=== PATIENT | male | born 1965 | race Caucasian/White ===

== ENCOUNTER 2020-12-12 13:05 | Observation (INO) | payer OTHER, SELFPAY ==
[2020-12-12] VITALS (9 sets, daily range): BP systolic 95–138; BP diastolic 70–111; PULSE 58–79; RESP 10–20; TEMP 36.1–36.7; O2SAT 94–100
--- NOTE | ~2020-12-12 | NM_ITS ---
EXAMINATION: NM basilio stress w perfusion EXAM DATE: 12/13/2020 12:09 INDICATION: CP, SOB, syncope. Ischemic chest pain. TECHNIQUE: Rest images were obtained following intravenous administration of 10.0 mCi Tc99m tetrofosm in (Myoview). The patient was infused intravenously with Lexiscan (regadenoson). Then, 30.8 mCi Tc99m tetrofosmin (Myoview) was administered intravenously, and stress images were obtained. Data was nolan nstructed into short axis and horizontal and vertical long axis SPECT images. Gated SPECT images were also obtained. There is no prior study for comparison. FINDINGS: There is moderate-sized apical septal and apical inferior wall region of decreased perfusio n on the rest which normalizes on the stress examination. This is most likely artifact. There is no d efinite reversible or fixed perfusion abnormality to suggest ischemia or infarction. There is normal left ventricular wall motion. End diastolic volume: 117 mL. End-systolic volume: 63 mL. Left ventricular ejection fraction: 46%. IMPRESSION: 1. Normal myocardial perfusion at rest and during stress. 2. Left ventricular ejection fraction measuring 46%. Reviewed, dictated and finalized at location A. WORKER
--- NOTE | ~2020-12-12 | XR_ITS ---
EXAMINATION: XR chest 1V DATE: 12/12/2020 13:52 INDICATION: Syncope TECHNIQUE: frontal view of the chest was obtained. COMPARISON: None FINDINGS: The lungs are clear with no focal airspace opacities, pulmonary edema, pleural effusion or pneumothor ax. The cardiomediastinal silhouette is normal. Visualized bones and soft tissues are unremarkable. IMPRESSION: 1. No acute cardiopulmonary disease. Reviewed, dictated and finalized at location B. INAL MANAGER
--- NOTE | ~2020-12-12 | CT_ITS ---
EXAMINATION: CT brain wo con, CT cervical spine wo con EXAM DATE: 12/12/2020 13:46 INDICATION: syncope. Fall, frontal head injury. TECHNIQUE: Spiral CT of the head was performed without contrast. Axial, coronal and sagittal images were reviewed. Spiral CT of the cervical spine was performed without contrast. Axial images were rev iewed. Coronal and sagittal reformatted images were also reviewed. The dose-length product (DLP) fo r this examination was 605.33 (accession [id number]), 436.84 (accession [id number]) mGy-cm. The exposure was tailored according to patient size, and iterative reconstruction (ASIR) was used as additional dose reduction technique. There is no prior study for comparison. FINDINGS: HEAD CT: There is no acute intraparenchymal hemorrhage. No evidence of intraparenchymal brain mass l esion. No evidence of acute infarction. There is no mass effect or midline shift. There is no obstru ctive hydrocephalus suspected. There are no extra-axial collections. There are no acute calvarial f ractures. The orbits are unremarkable. Soft tissue is unremarkable. The visualized sinuses and mas toid air cells are well aerated. CERVICAL CT: There is soft tissue density in the right posterolateral aspect pharynx just above the e piglottis, possible soft tissue mass. Vallecula has material inside most likely debris. No cervical l ymphadenopathy. There is no evidence of acute cervical fracture. The odontoid process is intact. Pr e-dens space is normal. Prevertebral soft tissue is normal. There are no soft tissue abnormalities identified. There is no disc space widening or traumatic vertebral body subluxation suspected. Mode rate disc disease C3-4 and C6-7. Moderate right neural foraminal stenosis at C6-7, most narrowed cerv ical level. Moderate left-sided upper cervical facet arthropathy. A detailed level by level evaluati on of spondylosis can be added as addendum if requested. IMPRESSION: 1. Possible soft tissue mass such as squamous cell cancer in right posterolateral aspect of the phar ynx. Consider nonemergent ENT consult for direct visualization. 2. No acute intracranial findings or cervical fracture. Reviewed, dictated and finalized at location A. PATIONAL THERAPY TECHNICIAN IMPRESSION: 1. Possible soft tissue mass such as squamous cell cancer in right posterolate ral aspect of the pharynx. Consider nonemergent ENT consult for direct visualiz ation. 2. No acute intracranial findings or cervical fracture.
--- NOTE | 2020-12-12 13:20 | ECG_ITS ---
Measurements Intervals Farber Rate: 78 P: 3 MT: 174 QRS: 48 QRSD: 98 T: 36 QT: 369 QTc: 422 Interpretive Statements SINUS RHYTHM BASELINE ARTIFACT- I, III, AVL, AVF NORMAL ECG Electronically Signed On 12-12-2020 13:33:26 BLOOD DONOR UNIT ASSISTANT by Deep Bennett D.O.
--- NOTE | 2020-12-12 13:54 | ED.GENADULT ---
HPI - General Adult General Chief complaint: Syncope Stated complaint: syncope, then chest heaviness and SOB Time Seen by Provider: 12/12/20 13:42 Source: RN notes reviewed History of Present Illness HPI narrative: Patient presents to emergency department from home via EMS for syncopal episode. Patient states he was walking when the next thing he remembers he was on the ground. He states that he had no dizziness chest pain or shortness of breath prior to the episode states that following the episode he did have some chest pain and shortness of breath with the chest pain now resolved and shortness of breath improving he notes that this time he does have some neck pain but denies any other symptoms denies any fevers or chills vision changes nausea vomiting diarrhea or any other symptoms patient denies any previous cardiac history he does note that he has had some intermittent episodes of chest pain shortness of breath over the past several months Related Data Home Medications Medication Instructions Recorded Confirmed No Home Medications 12/12/20 12/12/20 Allergies Allergy/AdvReac Type Severity Reaction Status Date / Time No Known Allergies Allergy Verified 12/12/20 13:19 Review of Systems Review of Systems: Narrative: Gen.: Denies fevers or chills Eyes: Denies eye pain or visual change ENT: Denies congestion Respiratory: D reports shortness of breath CV: See HPI GI: Denies abdominal pain nausea, emesis or diarrhea Musculoskeletal: Denies back pain or muscle pain Neuro: Denies numbness, tingling, weakness or focal weakness Skin: Denies rash Except as documented, all other systems reviewed and negative [facility] Past Medical History Medical History (Updated 12/12/20 @ 17:17 by Ayden Benitez DO) Diabetes mellitus Hypertension Social History Social History (Updated 12/12/20 @ 13:55 by Ayden Benitez DO) Smoking status: Current every day smoker Exam Narrative: Exam Narrative: APPEARANCE: No acute distress, nontoxic, resting in bed EYES: EOMI, PERRL HEENT: Normocephalic, atraumatic, OMM Neck: Supple no midline tenderness palpation tender palpation of bilateral para 2 muscles C5-7 RESPIRATORY: No respiratory distress Clear to auscultation bilaterally with no rhonchi wheezing or rales. CARDIOVASCULAR: Regular rate and rhythm without murmurs rubs or gallops. ABDOMINAL: Soft, nontender, nondistended, no rebound or guarding MUSCULOSKELETAl: Moves all extremities. No clubbing, cyanosis or edema. NEURO: Awake and alert x 3. Following commands, speech normal, no focal deficits SKIN:: Warm, dry. No rashes lesions or abrasions PSYCHIATRIC: Normal affect/mood, Course Course Emergency Course: I did discuss with Dr. Denton the patient's CT scans he came down to see the patient in the emergency department he recommends the patient follow-up with him in the office for direct visualization following discharge Called and l discussed with Dr. Angeles for cardiology presentation work-up agrees with consult at this time Called and discussed with PETE Cho for Dr. Alberto presentation work-up agrees with admission Discussed with patient and family results of workup and diagnosis. Discussed need for admission. Patient and family understand and agree to current treatment plan Vital Signs Vital signs: Vital Signs Temperature 98 F 12/12/20 13:15 Pulse Rate 76 12/12/20 13:15 Respiratory Rate 16 12/12/20 13:15 Blood Pressure 135/94 H 12/12/20 13:15 Pulse Oximetry 99 12/12/20 13:15 Temperature 98 F 12/12/20 13:15 Pulse Rate 71 12/12/20 16:18 Respiratory Rate 12 12/12/20 16:18 Blood Pressure 131/81 12/12/20 16:18 Pulse Oximetry 98 12/12/20 16:18 Medical Decision Making Vital Signs Vital Signs: Vital Signs Temperature 98 F 12/12/20 13:15 Pulse Rate 76 12/12/20 13:15 Respiratory Rate 16 12/12/20 13:15 Blood Pressure 135/94 H 12/12/20 13:15 Pulse Oximetry 99 12/12/20 13
[2020-12-12 14:17] LABS: Basophils Percent Auto 0.4 % (0.2-1.2); Eosinophils Absolute Auto 0.2 K/mm3 (0-0.3); Eosinophils Percent Auto 1.5 % (0-4.4); Hematocrit 46.5 % (42.0-52.0); Hemoglobin 15.8 g/dL (14.0-18.0); Immature Granulocyte Absolute 0.03 K/mm3 (0.00-0.031); Immature Granulocyte Percent A 0.3 % (0-0.5); Lymphocytes Absolute Auto 1.75 K/mm3 (0.9-3.2); Lymphocytes Percent Auto 17.1 % (18.3-44.2); Mean Corpuscular Hemoglobin 28.7 pg (26-34); Mean Corpuscular Volume 84.4 fl (80-100); Monocytes Absolute Auto 0.7 K/mm3 (0.1-0.6); Monocytes Percent Auto 6.4 % (2.6-8.5); Neutrophils Absolute Auto 7.6 K/mm3 (1.3-6.7); Neutrophils Percent Auto 74.3 % (45.5-73.1); Platelet Count Result 180 k/mm3 (150-375); Red Blood Count 5.51 M/mm3 (4.6-6.20); Red Cell Distribution Width 13.4 % (11.5-14.5); White Blood Count 10.2 K/mm3 (4.5-10.0)
[2020-12-12 14:27] LABS: INR 0.9; Prothrombin Time 12.7 Seconds (11.1-14.7)
[2020-12-12 14:28] LABS: Partial Thromboplastin Time 27.9 SECONDS (22.3-36.8)
[2020-12-12 14:35] LABS: Anion Gap 4 mmol/L (8-16); Blood Urea Nitrogen 15 mg/dL (9-20); Calcium 8.9 mg/dL (8.4-10.2); Carbon Dioxide 30 mmol/L (22-30); Chloride 107 mmol/L (98-107); Estimated CRCL calculation 119 ml/min; Estimated Glomerular Filt Rate > 60; Glucose 130 mg/dL (75-110); Potassium 4.1 mmol/L (3.4-5.0); Sodium 141 mmol/L (137-145)
[2020-12-12 14:47] LABS: Troponin I < 0.012 ng/mL (0.000-0.034)
--- NOTE | 2020-12-12 15:35 | PC.NURSE ---
Per pts request employee benefits coordinator called. Yaneth states she will be down in a bit to talk to pt.
[2020-12-12 15:36] LABS: D Dimer 0.27 ug/mL (<0.48)
[2020-12-12 16:14] LABS: Ethanol < 10 mg/dL (<10)
[2020-12-12 16:26] LABS: Add Urine Microscopic? YES; Appearance Urine Clear (Clear); Bilirubin Urine Negative (Negative); Blood Urine Negative (Negative); Color Urine Yellow (Yellow); Glucose Urine UA Negative (Negative); Ketones Urine Negative (Negative); Leukocyte Esterase Ur Negative LEU/UL (Negative); Mucus Urine Rare /lpf; Nitrate Urine Negative (Negative); Protein Urine 1+ mg/dL (Negative); RBC Urine 0-2 /hpf (0-2); Specific Grav Ur 1.018 (1.001-1.035); Urobilinogen Urine Negative mg/dL (<2.0)
[2020-12-12 16:58] LABS: Barbiturate Screen Urine Negative (Negative); Benzodiazepines Screen Urine Negative (Negative)
[2020-12-12 17:02] LABS: Amphetamine Screen Urine Negative (Negative); Cannabinoid Screen Urine Positive (Negative); Cocaine Screen Urine Negative (Negative); Methadone Screen Urine Negative (Negative); Opiate Screen Urine Negative (Negative); Phencyclidine Screen Urine Negative (Negative)
--- NOTE | 2020-12-12 17:08 | PCCCNOTE ---
Patient requested to complete a Advance Directive. Form completed and witnessed. Original given to patient with two copies and a copy placed on chart. Patient does not want to be a DNR.
[2020-12-12 18:22] LABS: Troponin I < 0.012 ng/mL (0.000-0.034)
--- NOTE | 2020-12-12 18:25 | PM.IMHP ---
H&P: HPI History of Present Illness Date/Time: 12/12/20 18:25 Chief Complaint: syncope Narrative: Dorian Tapia is a 55 year old male who presents to the ED after a fall at home. History taken from the patient and also the witness at the bedside. He is reportedly was coming to the kitchen when he collapsed down to the floor and hit his face. He did not have any injury per se but has been feeling sore in his neck since then. He has never had this issue before. 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 he reports he was not havign any palpitations or any dizziness or lightheadedness. he denies any chest pain or shortness of breath. He does rpeort ongoing neck pain for severeal months that might ahve gotten aggravated since then fall. he denies any nausea, vomiting. he thinks he might have not been drinking enough fluids but was not conclusive on that. no fever, chils or any recent illness. no diarrea or abdominal pain reported. Review of Systems Constitutional: Constitutional: Denies body ache(s), Denies chills, Reports fatigue, Reports lethargy, Denies night sweats and Reports weakness Eyes: Eyes: Denies blurry vision and Denies photophobia ENT: Reports Normal hearing present, Denies nasal congestion and Denies tinnitus Cardiovascular: Cardiovascular: Denies chest pain, Denies diaphoresis, Denies pedal edema, Denies leg edema, Denies lightheadedness and Denies palpitations Respiratory: Respiratory: Denies chest congestion, Denies cough, Denies hemoptysis, Denies dyspnea and Denies dyspnea on exertion Gastrointestinal: Gastrointestinal: Denies abdominal pain, Denies bloating, Denies hematochezia, Denies constipation, Denies diarrhea, Denies nausea and Denies vomiting Genitourinary: Genitourinary: Denies dysuria and Denies urinary frequency Musculoskeletal: Musculoskeletal: Denies back pain, Denies myalgias, Denies arthralgias, Denies joint swelling, Reports neck pain and Denies stiffness Integumentary/Breasts: Skin/Breast: Reports dry skin and Reports pruritus Neurologic: Denies confusion and Reports numbness (foot on right side) Psychiatric: Psychiatric: Denies behavioral changes and Denies confusion Endocrine: Endocrine: Denies cold intolerance and Denies heat intolerance Hematologic/Lymphatic: Hematologic/Lymphatic: Denies easy bleeding, Denies easy bruising and Denies lymphadenopathy Allergic/Immunologic: Allergic/Immunologic: Denies seasonal rhinorrhea and Denies throat swelling PMFSH Past Medical History Medical History (Updated 12/12/20 @ 18:37 by Sha Sweeney MD) Diabetes mellitus Hypertension Social History Social History (Updated 12/12/20 @ 13:55 by Ayden Benitez DO) Smoking status: Current every day smoker Meds Home Medications and Allergies Home Medications Medication Instructions Recorded Confirmed Type No Home Medications 12/12/20 12/12/20 History Allergies Allergy/AdvReac Type Severity Reaction Status Date / Time No Known Allergies Allergy Verified 12/12/20 13:19 Vital Signs Vital Signs - 24 hr 12/12/20 13:15 12/12/20 14:48 12/12/20 16:18 Temperature 98 F Pulse Rate 76 73 71 Respiratory Rate 16 10 L 12 Blood Pressure 135/94 H 137/86 131/81 Pulse Oximetry 99 100 98 Exam Const: General: comfortable and no acute distress HENMT: Mouth: Yes moist mucous membranes and No Abnormal oral and palatal mucosa present Eyes: Pupils: Equal, round and reactive pupils present EOM: EOMs intact bilaterally Neck: Neck: supple and no JVD Thyroid: thyroid normal Carotids: no bruits Lymphatic: lymphadenopathy not noted Resp: Effort & Inspection: normal respiratory effort Auscultation: clear to auscultation bilaterally, no crackles, no rales, no rhonchi, no wheezes and lung sounds not diminished Cardio: Rate: regular rate Rhythm: regular rhythm Heart sounds: no gallops, no murmurs and no rubs GI: GI Palp: Yes Soft to palpation, No
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
[2020-12-12 19:17] LABS: Hemoglobin A1C 5.9 % (<5.7)
--- NOTE | 2020-12-12 19:20 | ADMGEN ---
This patient, Dorian Tapia, was admitted to IMU Room 206-01. Patient/family oriented to hospital policies and general routines including ID bracelet, bed and alarms, visiting hours, pain management, procedures, bathroom and other care routines, personal items, smoking policy, room service/diet, and visiting hours. Information on how to activate the Rapid Response Team has been discussed. Patient/Family are encouraged to report perceived risks to care and to ask questions if they do not understand what they are told or what they should do.
[2020-12-12 21:36] LABS: Troponin I < 0.012 ng/mL (0.000-0.034)
[2020-12-13] VITALS (13 sets, daily range): BP systolic 108–130; BP diastolic 70–89; PULSE 62–88; RESP 12–20; TEMP 36.3–36.6; O2SAT 94–98
--- NOTE | 2020-12-13 | ECHO_ITS ---
Patient Info Name: Dorian Tapia Age: 55 years : 1965 Gender: Male Ht: 73 in Wt: 184 lbs BSA: 2.08 m2 BP: 130 / 70 mmHg Heart Rhythm: Sinus Rhythm Technical Quality: Good Exam Date: 12/13/2020 10:11 AM Exam Location: [facility] Patient Status: Inpatient Admit Date: 12/12/2020 Staff Ordering Physician: Sha Sweeney MD Production Potter: Tom Casanova RDCS, RT Attending Provider: Ziggy Alberto MD Exam Type: CA echo doppler color flow Summary 1. Normal left ventricular size with mild concentric hypertrophy. Global LV systolic function is at the lower limit of normal, with mild hypokinesis of the basal inferior septal wall and septal apical segments. 2. Global longitudinal strain is also moderately reduced at -13% consistent with systolic dysfunction. 3. No significant valve disease. 4. Normal sinus rhythm. Left Ventricle Left ventricular chamber dimension is normal. Left ventricular systolic function is mildly reduced, estimated at 50-55%. There is mildly increased left ventricular wall thickness. Left ventricular septal wall motion is normal. The left ventricular diastolic function is normal. Global longitudinal strain is mildly elevated at 13 %. Right Ventricle Right ventricular chamber dimension is normal. Right ventricular systolic function is normal. Left Atria Left atrial chamber dimension is normal. Right Atria Right atrial chamber dimension is normal. Aortic Valve The aortic valve is trileaflet. There is no aortic valve sclerosis. There is no aortic valve stenosis. There is no aortic valve regurgitation. Pulmonic Valve The pulmonic valve is normal. There is no pulmonic valve stenosis. There is trace pulmonic regurgitation. Mitral Valve The mitral valve has normal leaflets. There is no mitral valve stenosis. There is no mitral valve regurgitation. Tricuspid Valve The tricuspid valve leaflets are normal. There is no significant tricuspid valve stenosis. There is trace tricuspid valve regurgitation. No pulmonary hypertension, estimated pulmonary arterial systolic pressure is Empty. Pericardium/Pleural The pericardium appears normal. There is no pericardial effusion. Inferior Vena Cava Normal inferior vena cava with >50% collapse upon inspiration consistent with Empty right atrial pressure, Empty. Aorta The aortic root size at the sinus of Valsalva is normal. The prox ascending aorta size is normal. Left Ventricular Outflow Tract Name Value Normal LVOT 2D LVOT Diameter 2.3 cm LVOT Doppler LVOT Peak Gradient 3 mmHg LVOT Mean Gradient 1 mmHg LVOT VTI 17 cm LVOT VTI/AV VTI Ratio 0.8 LVOT Stroke Volume 72 ml LVOT CO 5.4 l/min LVOT CI 2.6 l/min/m2 Mitral Valve Name Value Normal
--- NOTE | 2020-12-13 | EST_ITS ---
Patient Info Name: Dorian Tapia Age: 55 years : 1965 Gender: Male Ht: 73 in Wt: 184 lbs BSA: 2.08 m2 Technical Quality: Excellent Exam Date: 12/13/2020 10:55 AM Exam Location: [facility] Stress Patient Status: Inpatient Admit Date: 12/12/2020 Staff Ordering Physician: Elvi Angeles MD Attending Provider: Ziggy Alberto MD Exercise Technologist: Goldie Alas RDCS Exercise Physician: Elvi Angeles MD Exam Type: CA stress basilio w NM Study Info Indications R55 - Syncope and collapse R06.02 - Shortness of breath R07.9 - Chest pain, unspecified A regadenoson stress test was performed. Summary 1. No abnormal ST-T wave changes with lexiscan. 2. Lexiscan infusion associated with nausea and vomiting, reversed with aminophylline after the test. 3. Please correlate with nuclear medicine images, reported separately. Protocol: Lexiscan Stress ECG Details Stage: REST Duration (min): 0 min : 55 sec HR (bpm): 72 SBP (mmHg): 110 DBP (mmHg): 84 Stage: REST Duration (min): 16 min : 25 sec HR (bpm): 79 SBP (mmHg): 110 DBP (mmHg): 84 Stage: STAGE 1 Duration (min): 0 min : 59 sec HR (bpm): 102 SBP (mmHg): 122 DBP (mmHg): 87 Stage: RECOVERY Duration (min): 1 min : 0 sec HR (bpm): 100 SBP (mmHg): 131 DBP (mmHg): 87 Stage: RECOVERY Duration (min): 2 min : 0 sec HR (bpm): 120 SBP (mmHg): 131 DBP (mmHg): 87 Stage: RECOVERY Duration (min): 3 min : 0 sec HR (bpm): 103 SBP (mmHg): 156 DBP (mmHg): 104 Stage: RECOVERY Duration (min): 4 min : 0 sec HR (bpm): 95 SBP (mmHg): 156 DBP (mmHg): 104 Stage: RECOVERY Duration (min): 5 min : 0 sec HR (bpm): 86 SBP (mmHg): 152 DBP (mmHg): 104 Stage: RECOVERY Duration (min): 6 min : 0 sec HR (bpm): 75 SBP (mmHg): 152 DBP (mmHg): 104 Stage: RECOVERY Duration (min): 7 min : 0 sec HR (bpm): 85 SBP (mmHg): 151 DBP (mmHg): 98 Stage: RECOVERY Duration (min): 8 min : 0 sec HR (bpm): 73 SBP (mmHg): 151 DBP (mmHg): 98 Stage: RECOVERY Duration (min): 9 min : 0 sec HR (bpm): 78 SBP (mmHg): 147 DBP (mmHg): 99 Stage: RECOVERY Duration (min): 10 min : 0 sec HR (bpm): 87 SBP (mmHg): 147 DBP (mmHg): 99 Stage: RECOVERY Duration (min): 11 min : 0 sec HR (bpm): 83 SBP (mmHg): 148 DBP (mmHg): 99 Stage: RECOVERY Duration (min): 12 min : 0 sec HR (bpm): 82 SBP (mmHg): 148 DBP (mmHg): 99 Stage: RECOVERY Duration (min): 13 min : 0 sec HR (bpm): 83 SBP (mmHg): 154 DBP (mmHg): 101 Stage: RECOVERY Duration (min): 14 min : 0 sec HR (bpm): 73 SBP (mmHg): 154 DBP (mmHg): 101 Sta
[2020-12-13 05:18] LABS: Basophils Percent Auto 0.2 % (0.2-1.2); Eosinophils Absolute Auto 0.2 K/mm3 (0-0.3); Eosinophils Percent Auto 2.5 % (0-4.4); Hematocrit 45.8 % (42.0-52.0); Hemoglobin 15.2 g/dL (14.0-18.0); Immature Granulocyte Absolute 0.04 K/mm3 (0.00-0.031); Immature Granulocyte Percent A 0.5 % (0-0.5); Lymphocytes Absolute Auto 1.67 K/mm3 (0.9-3.2); Lymphocytes Percent Auto 20.8 % (18.3-44.2); Mean Corpuscular HGB Conc 33.2 g/dl (32-36); Mean Corpuscular Hemoglobin 28.3 pg (26-34); Mean Corpuscular Volume 85.1 fl (80-100); Mean Platelet Volume 9.4 fl (7.4-10.4); Monocytes Absolute Auto 0.5 K/mm3 (0.1-0.6); Monocytes Percent Auto 6.6 % (2.6-8.5); Neutrophils Absolute Auto 5.6 K/mm3 (1.3-6.7); Neutrophils Percent Auto 69.4 % (45.5-73.1); Platelet Count Result 172 k/mm3 (150-375); Red Blood Count 5.38 M/mm3 (4.6-6.20); Red Cell Distribution Width 13.6 % (11.5-14.5)
[2020-12-13 05:35] LABS: Magnesium 1.7 mg/dL (1.6-2.3)
[2020-12-13 05:37] LABS: Anion Gap 4 mmol/L (8-16); Blood Urea Nitrogen 11 mg/dL (9-20); Calcium 8.2 mg/dL (8.4-10.2); Carbon Dioxide 29 mmol/L (22-30); Chloride 107 mmol/L (98-107); Estimated CRCL calculation 137 ml/min; Estimated Glomerular Filt Rate > 60; Glucose 110 mg/dL (75-110); Potassium 4.1 mmol/L (3.4-5.0); Sodium 140 mmol/L (137-145)
[2020-12-13 05:57] LABS: Hemoglobin A1C 5.9 % (<5.7)
[2020-12-13 08:24] LABS: Glucose Point of Care 121 (65-105)
[2020-12-13] MEDS: PERFLUTREN LIPID MICROSPHERES 1.5 ML VIAL DILUTED TO 10 ML TOTAL VOLUME IV PUSH (09:57)
--- NOTE | 2020-12-13 15:12 | PM.DS ---
DS: Admitting Diagnosis Admitting Diagnosis Admitting Diagnosis: (1) Syncope: Code(s): R55 - Syncope and collapse Status: Acute (2) Mass of pharynx: Code(s): J39.2 - Other diseases of pharynx Status: Acute (3) Diabetes mellitus: Code(s): E11.9 - Type 2 diabetes mellitus without complications Status: Acute (4) Hypertension: Code(s): I10 - Essential (primary) hypertension Status: Acute (5) Neck pain: Code(s): M54.2 - Cervicalgia Status: Acute Additional Plan # syncope: single episode. ct head negative. EKG normal. troponin negative. d dimer negative. could be orthostatic. monitor in telemetry. cardiology on consultation.will order echocardiogram. ?carotid stimulation from sinus. may need holter or event monitor at discharge for evaluation. # Incidental finding of soft tissue mass on right posterolateral aspect of the pharynx: as noted in CT cervical spine. FU with ENT as op basis for direct visualization needs arranged. ?ct soft tissue neck with contrast for better visualisation of the mass. # Neck pain: Ct neck with moderate disc disease C3-4, and C6-7, moderate right neural foraminal stenosis at C6-7 moderate left sided upper cervical facet arthropathy noted. # reported hx of thoracic aneurysm per blanche. no records available. # HTN: used to be on cozaar, but has not been taking them lately. # Diabetes mellitus type 2: used to on metfomrin. not taking them lately. check a1c. monitor blood sugars. # diet: consistent carb diet # Fluids: NS @ 75 cc/hr. # Full code # Disposition: monitor in telmetry. echo. ambulate. outpatient fu for pharngyeal mass. further workup depending on the clinical course. DS: Discharge Diagnosis Discharge Diagnosis (1) Complete heart block: Code(s): I44.2 - Atrioventricular block, complete Status: Acute Assessment and Plan: patient will follow-up in the outpatient setting for likely pacemaker placement disposition as per cardiology (2) Cardiomyopathy: Code(s): I42.9 - Cardiomyopathy, unspecified Status: Acute Assessment and Plan: mild cardiomyopathy aspirate demonstrated on a stress test and echo cardio restarted all his meds (3) Neck pain: Code(s): M54.2 - Cervicalgia Status: Acute Assessment and Plan: chronic neck pain follow-up in the patient's (4) Syncope: Code(s): R55 - Syncope and collapse Status: Acute Assessment and Plan: likely secondary to complete heart block episode (5) Chest pain: Code(s): R07.9 - Chest pain, unspecified Status: Acute Assessment and Plan: resolved (6) Mass of pharynx: Code(s): J39.2 - Other diseases of pharynx Status: Acute Assessment and Plan: will follow-up in the outpatient setting (7) Diabetes mellitus: Code(s): E11.9 - Type 2 diabetes mellitus without complications Status: Acute Assessment and Plan: continue to monitor (8) Hypertension: Code(s): I10 - Essential (primary) hypertension Status: Acute Assessment and Plan: continue home med continue to monitor DS: Summary Hospital Course Reason for hospitalization: Syncope Hospital Course: this is a 55-year-old male with known significant past medical history he presented to emergency room after he had a syncopal episode with collapse patient was found to have complete heart block he was admitted to telemetry unit and stress test was obtained which did not show significant reversible ischemia patient had extensive workup for his syncopal episode which was basically on review his going to be seen in the outpatient setting for likely pacemaker placement if needed consults obtained cardiology. procedures done: no procedures patient was discharged home in a stable medical condition Status at Discharge Cognitive/behavioral status at discharge: AOX3 Time Spent with Patient Time attestation:
--- NOTE | 2020-12-13 15:24 | PM.PNCARD ---
Progress Note: A&P Assessment and Plan (1) Syncope: Code(s): R55 - Syncope and collapse Status: Acute Assessment and Plan: Patient presented with rabia syncope with a very brief prodrome. Transient complete heart block was noted during sleep, up to 4.9 seconds, which is highly abnormal. This may be related simply to the sleep apnea, but having complete heart block is so unusual that it may be the etiology of his daytime syncope. I recommended either pacemaker implant during this admission since most likely the complete heart block and syncope are related, or long-term monitoring as an outpatient to be certain that he is having episodes during the daytime and a pacemaker is truly indicated. 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 He is scheduled for follow-up in 2 weeks. No driving. Avoid being any situation where he could be injured or cause injury to others if he has another episode. Stay off of work until 2 week checkup then reassess. Discussed with Dr. Barba. (2) Cardiomyopathy: Code(s): I42.9 - Cardiomyopathy, unspecified Status: Acute Assessment and Plan: Surprisingly both the echo and Lexiscan suggesting mild cardiomyopathy. Although he had wall motion abnormalities on his echo, the stress test did not show any fixed or reversible defects. This does bring up the distant possibility of ventricular arrhythmias which would be unlikely with only mildly decreased LV function but not impossible. I reviewed the situation with an nuclear waste management engineer: EP study for inducible ventricular tachycardia versus outpatient monitoring? He felt the risk of ventricular arrhythmias is with this mild degree of LV dysfunction was very low and either approach would be acceptable. Outpatient monitoring was reasonable. In the meantime, will restart the patient on his prior blood pressure medicine, losartan, at low dose 25 mg daily to treat the cardiomyopathy. Reassess with an echo in 6 to 12 months. (3) Hypertension: Code(s): I10 - Essential (primary) hypertension Status: Acute Assessment and Plan: Blood pressure reasonably controlled here. (4) Mass of pharynx: Code(s): J39.2 - Other diseases of pharynx Status: Acute Assessment and Plan: Incidentally noted mass of the hypopharynx which will be evaluated by ENT as an outpatient. Very distant possibility would be some type of glossopharyngeal nerve problem leading to sinus pauses. (5) Complete heart block: Code(s): I44.2 - Atrioventricular block, complete Status: Acute Assessment and Plan: Transient complete heart block noted while asleep, 4.9 seconds max. Has signs and symptoms of sleep apnea; girlfriend's as he stops breathing for nearly 30 seconds at times. Outpatient sleep study is needed. Subjective Date/time seen: 12/13/20 15:24 Interval history: Follow-up for syncope. Date of service 12/12/2020: Patient has been fine overnight and is eager to be discharged, having difficulty with out access to cigarettes. 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 During the day there has been normal sinus rhythm. Echo and Lexiscan as below. Check for orthostatics, once had a 15 mm drop in blood pressure but at another time no change. Review of Systems Constitutional: Constitutional: Denies weakness Eyes: Eyes: Reports no additional eye complaints ENT: Denies nasal congestion Cardiovascular: Cardiovascular: Denies chest pain, Denies pedal edema, Denies leg edema, Denies lightheadedness and Denies palpitations Respiratory: Respiratory: Denies dyspnea and Denies dyspnea on exert
== END 2020-12-13 15:27 | disposition home or self-care (01) ==
LOC: ANHED 17:17 → ANHIMU 18:44
PROVIDERS: Emergency Medicine; Family Medicine; Internal Medicine; Admitting Provider Family Medicine; Emergency Provider Emergency Medicine; Visit Provider Internal Medicine
DX: R55 Syncope and collapse (principal); I42.9 Cardiomyopathy, unspecified; I10 Essential (primary) hypertension; J39.2 Other diseases of pharynx; I44.2 Atrioventricular block, complete; R07.89 Other chest pain; R06.02 Shortness of breath; M54.2 Cervicalgia; W18.39XA Other fall on same level, initial encounter; E11.9 Type 2 diabetes mellitus without complications; Z82.49 Family history of ischemic heart disease and other diseases of the circulatory system; F17.210 Nicotine dependence, cigarettes, uncomplicated; F17.200 Nicotine dependence, unspecified, uncomplicated
CPT/HCPCS: 36415; 70450; 71045; 72125; 78452; 80048; 80307; 81001; 82948; 83036; 83735; 84484; 85025; 85380; 85610; 85730; 93005; 93017; 93306; 96374; 99285; A9502; G0378; J0131; J0280; J2785; Q9957

== ENCOUNTER → 2020-12-29 00:54 | Outpatient (CLI) | payer OTHER, SELFPAY ==
[2020-12-29 19:13] LABS: SARS-CoV-2 RNA PCR Negative
== END ==
PROVIDERS: Visit Provider Internal Medicine Cardiovascular Disease
DX: Z01.812 Encounter for preprocedural laboratory examination (principal); Z20.822 Contact with and (suspected) exposure to COVID-19
CPT/HCPCS: C9803; U0003; U0005

== ENCOUNTER → 2021-01-02 03:49 | Outpatient (CLI) | payer OTHER, SELFPAY ==
[2021-01-02 16:23] LABS: SARS-CoV-2 RNA PCR Negative
== END ==
PROVIDERS: Visit Provider Internal Medicine Cardiovascular Disease
DX: Z01.812 Encounter for preprocedural laboratory examination (principal); Z20.822 Contact with and (suspected) exposure to COVID-19
CPT/HCPCS: C9803; U0003; U0005

== ENCOUNTER 2021-01-04 01:24 | Day surgery (SDC) | payer OTHER, SELFPAY ==
[2021-01-01 10:43] VITALS: BMI 24.5
[2021-01-04] VITALS (19 sets, daily range): BP systolic 97–128; BP diastolic 73–95; PULSE 60–97; RESP 12–22; TEMP 36.1–36.5; O2SAT 95–100; BMI 24.9
--- NOTE | ~2021-01-04 | XR_ITS ---
EXAMINATION: XR chest 2V DATE: 01/05/2021 08:12 INDICATION: Pacemaker insertion TECHNIQUE: PA and lateral views of the chest are obtained. COMPARISON: 01/04/2021 FINDINGS: The lungs are free of acute opacities. There is no pleural effusion or pneumothorax. The ca rdiomediastinal silhouette is normal. There is mild thoracic spondylosis. A dual-lead cardiac pacemak er of the left chest wall ends with leads in expected locations. IMPRESSION: 1. No acute cardiopulmonary abnormality. Reviewed, dictated and finalized at location A.
--- NOTE | ~2021-01-04 | XR_ITS ---
EXAMINATION: XR chest 1V portable 01/04/2021 12:32 INDICATION: Pacemaker insertion PROCEDURE: AP portable chest COMPARISON: 12/12/2020 FINDINGS: The lungs are clear. The cardiomediastinal silhouette is within normal limits. There are no pleural effusions. There is no pneumothorax suspected. Pacemaker leads in expected position. IMPRESSION: 1: NO ACUTE CARDIOPULMONARY DISEASE. Reviewed, dictated and finalized at location B.
--- NOTE | 2021-01-04 08:00 | ECG_ITS ---
Measurements Intervals [place] Rate: 84 P: 41 NC: 166 QRS: 11 QRSD: 99 T: 19 QT: 360 QTc: 428 Interpretive Statements SINUS RHYTHM BASELINE ARTIFACT- I, II, III, AVR NORMAL ECG Electronically Signed On 01-04-2021 8:29:12 CDT by Deep Bennett D.O.
[2021-01-04 08:46] LABS: Basophils Percent Auto 0.4 % (0.2-1.2); Eosinophils Absolute Auto 0.2 K/mm3 (0-0.3); Eosinophils Percent Auto 2.9 % (0-4.4); Hematocrit 44.1 % (42.0-52.0); Immature Granulocyte Absolute 0.02 K/mm3 (0.00-0.031); Immature Granulocyte Percent A 0.3 % (0-0.5); Lymphocytes Absolute Auto 1.49 K/mm3 (0.9-3.2); Lymphocytes Percent Auto 20.7 % (18.3-44.2); Mean Corpuscular Hemoglobin 28.6 pg (26-34); Mean Corpuscular Volume 84.2 fl (80-100); Mean Platelet Volume 9.3 fl (7.4-10.4); Monocytes Absolute Auto 0.6 K/mm3 (0.1-0.6); Monocytes Percent Auto 7.9 % (2.6-8.5); Neutrophils Absolute Auto 4.9 K/mm3 (1.3-6.7); Neutrophils Percent Auto 67.8 % (45.5-73.1); Platelet Count Result 151 k/mm3 (150-375); Red Blood Count 5.24 M/mm3 (4.6-6.20); Red Cell Distribution Width 13.4 % (11.5-14.5); White Blood Count 7.2 K/mm3 (4.5-10.0)
--- NOTE | 2021-01-04 08:55 | SUR.PREOP ---
Bilateral chest wiped with chlorhexidine wipe x2 pre-operatively.
[2021-01-04 08:58] LABS: Anion Gap 6 mmol/L (8-16); Blood Urea Nitrogen 16 mg/dL (9-20); Calcium 8.9 mg/dL (8.4-10.2); Carbon Dioxide 27 mmol/L (22-30); Chloride 107 mmol/L (98-107); Estimated CRCL calculation 119 ml/min; Estimated Glomerular Filt Rate > 60; Glucose 145 mg/dL (75-110); Potassium 4.3 mmol/L (3.4-5.0); Sodium 140 mmol/L (137-145)
[2021-01-04 09:02] LABS: INR 0.9; Prothrombin Time 12.4 Seconds (11.1-14.7)
--- NOTE | 2021-01-04 09:34 | WPDHPUPDATE1 ---
History and Physical Update Update Date/Time: 01/04/21 09:34 Patient with documented intermittent complete heart block and episode of syncope without prodrome here for elective dual-chamber pacemaker implant. History and Physical has been reviewed, including an updated exam of the patient. There are NO changes in the patient's condition. Risks, benefits, and alternatives have been discussed and questions answered. Reviewed risks of pacemaker implant with patient. These include breathing problems, allergic reactions, bleeding, infection, pneumothorax, cardiac puncture, need for unanticipated surgery, lead dislodgement among others. Patient agrees to proceed with procedure.
--- NOTE | 2021-01-04 09:35 | WPDMODSED ---
Moderate Sedation Note-Pt Data Patient Data Diagnosis: Intermittent complete heart block, syncope with no prodrome Pharyngeal mass Present Complaint: Intermittent complete heart block and syncope Procedure to be performed/Plan: Conscious sedation venogram Iimplantation of a permanent dual-chamber pacemaker Allergies Allergy/AdvReac Type Severity Reaction Status Date / Time No Known Allergies Allergy Verified 01/01/21 11:02 Home Medications Medication Instructions Recorded Confirmed Type No Home Medications 12/12/20 01/01/21 History Current Medications: Active Medications Sodium Chloride (Normal Saline Iv) 500 mls @ 100 mls/hr IV CONT .Q5H LOS Sedation/Anesthesia: No previous sedation/anesthesia problems (including family history). [facility] Past Medical History Medical History Cardiomyopathy Complete heart block Diabetes mellitus Hypertension Liver problem Evaluated in January 2018 at [facility] for lymphadenopathy, weight loss and liver problems. He apparently had fever, anemia and thrombocytopenia as well as an abnormal chest CT. Evaluation was negative for lymphoma (lymph node biopsy, bone marrow biopsy) or other cancers. Liver biopsy showed hepatitis of uncertain etiology with moderate periportal and lobular inflammation and periportal fibrosis with mild steatosis. There were some labs that were still pending on discharge and he is instructed to follow up, though did not. 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 Lives with is girlfriend Madison. Smoking packs per day: 1 Smoking cigarettes per day: 20.0 Smoking status: Current every day smoker Tobacco type: cigarettes Second hand tobacco smoke exposure: No Alcohol intake: current Drinks per week: 2 Substance use: current Gender identity (if verbalized by the patient): Male Spiritual care concerns: No Mod Sed Physical Exam Physical Exam Pre Procedural Exam: Normal: Appearance, Eyes, Ears, Nose, Neck, Throat, Lungs, Heart Size, Heart Rate, Heart Rhythm, Neuro Exam, Abdomen, Extremities and Skin (left prepectoral area w/o lesions) and Variation: Airway (edentulous) Hours since solid foods: 12 Hours since liquid intake: 12 Internal Medicine - PN: Obj Da Vital Signs Vital Signs: Vital Signs - 24 hr 01/04/21 08:51 Temperature 97.7 F Pulse Rate 81 Respiratory Rate 12 Blood Pressure 105/81 Pulse Oximetry 96 Meds/Results Medications: Active Medications Generic Name Dose Route Start Last Admin Trade Name Freq PRN Reason Stop Dose Admin Sodium Chloride 500 mls @ 100 mls/hr 01/02/21 07:00 Normal Saline Iv IV CONT .Q5H LOS Labs CBC & Chem 7: 01/04/21 08:37 01/04/21 08:37 Labs: Laboratory Results - last 24 hr 01/04/21 01/04/21 01/04/21 08:37 08:37 08:37 WBC 7.2 RBC 5.24 Hgb 15.0 Hct 44.1 MCV 84.2 MCH 28.6 MCHC 34.0 RDW 13.4 Plt Count 151 MPV 9.3 Immature Gran % (Auto) 0.3 Neut % (Auto) 67.8 Lymph % (Auto) 20.7 [place] % (Auto) 7.9 Eos % (Auto) 2.9 Baso % (Auto) 0.4 Lymph # (Auto) 1.49 [place] # (Auto) 0.6 Eos # (Auto) 0.2 Baso # (Auto) 0.0 Abs Immat Gran (auto) 0.02 Absolute Neuts (auto) 4.9 Absolute Nucleated RBC 0.0 Nucleated RBC % 0.0 PT 12.4 INR 0.9 Sodium 140 Potassium 4.3 Chloride 107 Carbon Dioxide 27 Anion Gap 6 L BUN 16 Creatinine 0.70 Estim
--- NOTE | 2021-01-04 11:34 | PM.OP ---
Procedure Note - Brief Procedure Note - Brief Date of procedure: 01/04/21 Pre-op diagnosis: complete heart block, syncope Post-op diagnosis: same Procedure performed: Venogram Conscious sedation Implantation of a permanent dual-chamber Medtronic pacemaker Description of procedure: uneventful of dual-chamber pacemaker Anesthesia: local ( and conscious sedation) Surgeon: Elvi Angeles MD Complications: No immediate complications Condition: stable Disposition: observation Findings: uneventful of a dual-chamber pacemaker
--- NOTE | 2021-01-04 11:36 | PM.PROC ---
Procedure Note - Detailed Date of procedure: 01/04/21 Pre-op diagnosis: complete heart block, syncope Post-op diagnosis: same Procedure performed: conscious sedation venogram Implantation of a permanent dual-chamber transvenous Medtronic pacemaker Description of procedure: HISTORY: 55-year-old male with a history of syncope without prodrome who was found have intermittent complete heart block on monitoring. Here for implantation of a permanent dual-chamber pacemaker. Interestingly the patient was incidentally found to have a mass in the hypopharynx which will be biopsied at a later date; unclear if there is any vasovagal nerve involvement that might contribute to sinus node dysfunction or complete heart block. SITE: Left prepectoral area MEDICATIONS GIVEN IN SPECIAL TRACKWORK BLACKSMITH: Ancef 1 gram IV piggyback CONSCIOUS SEDATION: Assessment: The patient has no history of anesthesia problems. The patient's oropharynx is clear. The patient was deemed to be a good candidate for conscious sedation. The patient had continuous hemodynamic monitoring during the procedure. Start time:1004 Completion time: 11 30 Total conscious sedation time: 86 minutes Medications: Versed 5 mg IV push, fentanyl 125 mcg IV push Trained observer: Jessica Dodson RN Outcome: The patient tolerated the procedure well with no complications. PROCEDURE: After informed consent , the patient was brought to the lab associate and the left prepectoral area was prepped and draped in usual fashion . The patient received preop antibiotic and conscious sedation. A venogram was performed showing the course of the left subclavian vein,which was patent. The left prepectoral area was anesthetized with lidocaine. Next a skin incision was made and carried down to the prepectoral fascia. Hemostasis was obtained using electrocautery . The pacer pocket was formed. The left subclavian vein was easily accessed with the micropuncture technique, and a J-tip guide wire was passed into the inferior vena cava under fluoroscopic guidance . The needle was withdrawn . A 2nd wire was introduced in an identical fashion. A 7 [place] safety sheath was passed over the lateral wire, the wire withdrawn, and the right ventricular lead was passed into the inferior vena cava under fluoroscopic guidance . The lead was then prolapsed through the tricuspid valve and advanced into the right ventricular apex. When suitable sensing and pacing thresholds were obtained, it was screwed into place. No extra cardiac stimulation was obtained using 10 volts. The sheath was withdrawn. Next, another 7 [place] safety sheath was passed over the more medial wire, the wire withdrawn, and the right atrial lead was passed into the inferior vena cava under fluoroscopic guidance. Right atrial lead was then pulled back to the level of the right atrium and manipulated into the right atrial appendage . When suitable sensing and pacing thresholds were obtained , it was screwed into place . No extra cardiac stimulation was obtained using 10 volts. The sheath was withdrawn. Both leads were secured to the prepectoral fascia using 2-0 silk over their respective sleeves. Re-evaluation of the leads showed the P wave sensing had dropped to 0.8 mV, so the RA lead was repositioned, better sensing was obtained, no extracardiac stimulation found, and again sutured to the prepectoral fascia over the sleeve. The pocket was cleansed with antibiotic containing solution . The pulse generator was introduced into the operative field, and both leads were secured into the generator . A gentle tug showed the leads were securely fastened. The device was introduced into the pocket. A stay-stich was applied using 4-0 silk. The subcutaneous tissues were closed in a double layer fashion with interrupted sutures, using 2-0 Vicryl suture , and the skin was closed in a continuous fashion using 4-0 Vicryl suture in a continuous fashion. The area was c
--- NOTE | 2021-01-04 11:50 | ECG_ITS ---
Measurements Intervals [place] Rate: 69 P: 46 IA: 187 QRS: 66 QRSD: 104 T: 52 QT: 392 QTc: 421 Interpretive Statements SINUS RHYTHM NORMAL ECG Electronically Signed On 01-04-2021 12:19:23 CDT by Deep Bennett D.O.
--- NOTE | 2021-01-04 12:04 | ECG_ITS ---
Measurements Intervals [place] Rate: 56 P: 52 CA: 159 QRS: 8 QRSD: 97 T: 99 QT: 445 QTc: 432 Interpretive Statements SINUS BRADYCARDIA DELAYED PRECORDIAL R/S TRANSITION T WAVE ABNORMALITY IN HIGH LATERAL LEADS- CONSIDER ISCHEMIA ABNORMAL ECG Electronically Signed On 01-04-2021 12:23:50 CDT by Deep Bennett D.O.
[2021-01-04] MEDS: HYDROcodone/acetaminophen (*CRX) 5-325 MG TABLET 2 TAB PO ×2 (13:38→20:28)
--- NOTE | 2021-01-04 17:34 | PC.NURSE ---
Patient transferred to [facility] via bed, Report given to Karla PEÑALOZA, belongings sent with patient.
[2021-01-04 17:41] LABS: Glucose Point of Care 132 (65-105)
[2021-01-04] MEDS: ceFAZolin 2 GM/D5W 50 ML 2 GM/50 ML BAG IVPB (18:03)
[2021-01-04 20:44] LABS: Glucose Point of Care 137 (65-105)
[2021-01-05] VITALS (7 sets, daily range): BP systolic 104–123; BP diastolic 53–80; PULSE 60–71; RESP 18–20; TEMP 36–36.4; O2SAT 97–100
[2021-01-05] MEDS: ceFAZolin 2 GM/D5W 50 ML 2 GM/50 ML BAG IVPB (02:17)
[2021-01-05] MEDS: HYDROcodone/acetaminophen (*CRX) 5-325 MG TABLET 2 TAB PO ×2 (02:55→08:48)
--- NOTE | 2021-01-05 10:07 | PM.DS ---
DS: Admitting Diagnosis Admitting Diagnosis Admitting Diagnosis: History of syncope Complete heart block Hypertension, diabetes DS: Discharge Diagnosis Discharge Diagnosis (1) Complete heart block: Code(s): I44.2 - Atrioventricular block, complete Status: Acute (2) Pacemaker: Code(s): Z95.0 - Presence of cardiac pacemaker Status: Acute DS: Summary Hospital Course Reason for hospitalization: Outpatient admission for pacemaker implantation Hospital Course: 55-year-old previously history of syncope. Found to be in complete heart block who underwent a Medtronic dual chamber pacemaker implantation yesterday. Unremarkable postoperative recovery. Chest x-ray looks fine. Okay for discharge. Status at Discharge Cognitive/behavioral status at discharge: Stable Functional status at discharge: independent ambulation Overall status at discharge: patient is back to baseline Time Spent with Patient Time attestation: Total time spent providing and/or coordinating discharge services: 20 minutes Time spent: Less than 30 minutes Exam Narrative: Exam Narrative: Awake alert oriented Const: General: comfortable and no acute distress HENMT: General nose exam: Normal nares present Eyes: Sclera: sclerae normal Neck: Neck: no JVD Resp: Auscultation: clear to auscultation bilaterally Cardio: Rate: regular rate GI: GI Palp: Yes Soft to palpation Skin: General skin exam: normal color Other: Pacemaker site is covered but without hematoma underneath. Neuro: Motor exam (neuro): Normal motor muscle tone present throughout Extrem: General: normal to inspection Psych: Mental Status: mental status grossly normal DS: Data Data Completed and Pending Labs on day of discharge: Labs from last 24 hours 01/04/21 01/04/21 20:32 17:33 POC Capillary Glucose 137 H 132 H Discharge Plan Discharge Attending physician on discharge: Elvi Angeles Discharging Clinician: Warren Monroe Patient Disposition: Home, Self-Care Activity: no shower and other - see discharge instructions Diet: diabetic and low sodium Wound Care Instructions: keep dressing dry Discharge Instructions: Prescription: A prescription for an antibiotic was sent to your pharmacy[facility] [place]. Please start taking it on the day you are discharged. Care of the Incision --Keep the special Aquacel dressing on the incision until it is removed by [facility] Cardiology/[facility] nurse on your follow-up visit --Keep the dressing clean and dry; no showering above the waist, or swimming until it is removed next week --A small amount of tenderness, puffiness and bruising around the site is normal. Call if any significant pain, drainage, swelling, or redness around the site. --No lifting > 15 pound or exercise with the affected arm for 4 weeks. --Keep the affected arm below shoulder height for 4 weeks. -- Plan to be off work 4-6 weeks, or at least on restricted duty for the next 4-6 weeks. --DO NOT TOUCH OR RUB THE INCISION. No lotions or ointments on the incision. Follow-Up Incision check is scheduled for January 11 at 10:[address] Angeles on February 04 at 1:30 pm Please arrive 15 minutes early for registration. Contact information: [facility] Cardiology: [phone]. Call if any questions. Address: [address] [place] [address] [address], [address], [place] [address]. Our office is on the ground floor next to the gift shop of the doctor's office building. Enter through the main entrance for COVID screening. Patient Instructions: Antibiotic Form, Pacemaker (DC) Stand Alone Forms: General Discharge Instructions Follow-up/Referrals: Elvi Angeles MD [Physician] - 4 Weeks Discharge Medications: New cephalexin 500 mg capsule 500 mg PO Q12H 5 Days Qty: 10 RF: 0 Date of admission: 01/04/21 12:04 Primary Care Provider: PHYSICIAN,COOK TORTILLA Admitting Sravanthi
== END 2021-01-05 10:54 | disposition home or self-care (01) ==
LOC: ANHCATHLAB 11:42 → ANHIMU 17:51
PROVIDERS: Visit Provider Internal Medicine Cardiovascular Disease
PROC: 0JH606Z Insertion of Pacemaker, Dual Chamber into Chest Subcutaneous Tissue and Fascia, Open Approach (ICD-10-PCS; CPT 33208; principal; 2021-01-04 09:30)
DX: I44.2 Atrioventricular block, complete (principal); I42.9 Cardiomyopathy, unspecified; I10 Essential (primary) hypertension; E11.9 Type 2 diabetes mellitus without complications; K75.9 Inflammatory liver disease, unspecified; F17.210 Nicotine dependence, cigarettes, uncomplicated
CPT/HCPCS: 33208; 36415; 71045; 71046; 80048; 82948; 85025; 85610; 93005; A4565; A9270; C1779; C1785; C1894; C9803; J0690; J2250; J3010; J7040; U0003; U0005

== ENCOUNTER 2021-01-10 11:50 | Outpatient (CLI) | payer OTHER, SELFPAY ==
[2021-01-10 12:22] LABS: Alanine Aminotransferase 12 U/L (4-50); Alkaline Phosphatase 97 U/L (38-126); Aspartate Amino Transferase 20 U/L (17-59); Bilirubin,Total 0.2 mg/dL (0.2-1.3)
[2021-01-10 12:49] LABS: Iron 37 ug/dL (49-181)
[2021-01-10 12:53] LABS: Prostate Specific Antigen 0.9 ng/mL (< OR = 4.0)
[2021-01-10 12:58] LABS: Percent Iron Saturation 10 % (20-50)
== END 2021-01-10 11:51 | disposition home or self-care (01) ==
LOC: ANHLAB 11:52
PROVIDERS: PCP Internal Medicine; Visit Provider Internal Medicine
DX: Z12.5 Encounter for screening for malignant neoplasm of prostate (principal); R79.89 Other specified abnormal findings of blood chemistry; E83.19 Other disorders of iron metabolism
CPT/HCPCS: 36415; 80076; 82728; 83540; 83550; 84153; G0103

== ENCOUNTER → 2021-01-19 00:48 | Outpatient (CLI) | payer OTHER, SELFPAY ==
[2021-01-19 18:52] LABS: SARS-CoV-2 RNA PCR Negative
== END ==
PROVIDERS: PCP Internal Medicine; Visit Provider Otolaryngology
DX: Z01.812 Encounter for preprocedural laboratory examination (principal); Z20.822 Contact with and (suspected) exposure to COVID-19
CPT/HCPCS: C9803; U0003; U0005

== ENCOUNTER 2021-01-21 15:41 | Outpatient (CLI) | payer OTHER, SELFPAY ==
--- NOTE | ~2021-01-21 | CT_ITS ---
EXAMINATION: CT abdomen pelvis wo con DATE: 01/21/2021 16:03 INDICATION: Unspecified abdominal pain TECHNIQUE: Computed tomography (CT) of the abdomen and pelvis was performed without intravenous contr ast. The dose-length product (DLP) was 797.95 mGy-cm. Automated exposure control and iterative recons truction technique were employed. COMPARISON: None FINDINGS: Minimal dependent atelectasis is present in the lung bases. The heart size is normal. The l iver, spleen, pancreas, gallbladder, and adrenal glands are normal. There is a 12 mm cyst of the righ t kidney. The left kidney is unremarkable. There is mild left periaortic retroperitoneal lymphadenopa thy. There is calcified atherosclerosis of the aorta and many of the other arteries. There is no free intraperitoneal gas or evidence of bowel obstruction. IMPRESSION: 1. No CT correlate for the patient's symptoms. Mild retroperitoneal lymphadenopathy of unclear signif icance, likely reactive in the absence of known malignancy. Reviewed, dictated and finalized at location B. IMPRESSION: 1. No CT correlate for the patient's symptoms. Mild retroperitoneal lymphadenop athy of unclear significance, likely reactive in the absence of known malignanc y.
== END 2021-01-21 15:42 | disposition home or self-care (01) ==
PROVIDERS: PCP Internal Medicine; Visit Provider Nurse Practitioner
DX: K62.5 Hemorrhage of anus and rectum (principal); R10.9 Unspecified abdominal pain
CPT/HCPCS: 74176

== ENCOUNTER 2021-01-22 02:12 | Day surgery (SDC) | payer OTHER, SELFPAY ==
[2021-01-07 11:36] VITALS: BMI 24.7
--- NOTE | 2021-01-21 08:50 | PM.IMHP ---
H&P: HPI History of Present Illness Date/Time: 01/21/21 08:50 55-year-old male presents for planned operative procedure. Reports no changes in symptoms or medical history. Chief Complaint: Pharyngeal lesion Review of Systems Constitutional: Constitutional: Denies fatigue, Denies fever(s) and Denies lethargy Eyes: Eyes: Denies blurry vision and Denies change in vision ENT: Reports as per HPI Cardiovascular: Cardiovascular: Denies chest pain Respiratory: Respiratory: Denies cough Endocrine: Endocrine: Denies fatigue Hematologic/Lymphatic: Hematologic/Lymphatic: Denies easy bleeding, Denies easy bruising and Denies lymphadenopathy Allergic/Immunologic: Allergic/Immunologic: Denies seasonal rhinorrhea [facility] Past Medical History Medical History (Updated 01/15/21 @ 11:22 by Alex Lorenzana APRN) Cardiomyopathy Complete heart block Diabetes mellitus Elevated LFTs Hypertension Iron overload Liver problem Evaluated in January 2018 at [facility] for lymphadenopathy, weight loss and liver problems. He apparently had fever, anemia and thrombocytopenia as well as an abnormal chest CT. Evaluation was negative for lymphoma (lymph node biopsy, bone marrow biopsy) or other cancers. Liver biopsy showed hepatitis of uncertain etiology with moderate periportal and lobular inflammation and periportal fibrosis with mild steatosis. There were some labs that were still pending on discharge and he is instructed to follow up, though did not. Family History Family History Father Heart disease Heart attack Natural with unknown cause in his 80s of natural causes in a residential Hypertension Mother Natural with unknown cause in her sleep at the age of 77, no history of heart disease Hypertension Social History Social History (Updated 01/15/21 @ 10:44 by Asia Lassiter MA) Smoking packs per day: 0.5 Smoking cigarettes per day: 10.0 Years smoked: 45 Smoking pack-years: 22.50 Smoking status: Current every day smoker Tobacco type: cigarettes Second hand tobacco smoke exposure: No Alcohol intake: current Drinks per week: 3 Gender identity (if verbalized by the patient): Male Spiritual care concerns: No Meds Home Medications and Allergies Home Medications Medication Instructions Recorded Confirmed Type sildenafil 50 mg tablet 50 mg PO DAILY PRN #10 tablet 01/10/21 01/15/21 Rx Allergies Allergy/AdvReac Type Severity Reaction Status Date / Time No Known Allergies Allergy Verified 01/15/21 10:43 Exam Const: General: cooperative, healthy appearing, comfortable, well developed and alert HENMT: Head: normal to inspection, normocephalic and atraumatic Ears: hearing grossly normal bilaterally, external ears normal, TM's normal bilaterally and EAC's normal General nose exam: Normal external nose present, Normal nares present, No nasal polyps present, Normal nasal mucous membranes and turbinates present and Normal septum present Face and sinus: normal facial exam Mouth: Yes Normal oral and palatal mucosa present, Yes lip normal, Yes tongue normal, Yes oropharynx normal and Yes moist mucous membranes Teeth and gingiva: dentition normal and gingiva normal Throat: posterior oropharynx normal, tonsils normal and uvula midline Eyes: General: appearance normal, both eyes and all related structures Periorbital: periorbital findings normal Eyelids: eyelids normal Conjunctivae: conjunctivae normal Sclera: sclerae normal Neck: Neck: normal visual inspection, full ROM and no lymphadenopathy Thyroid: thyroid normal Lymphatic: no lymphadenopathy noted Resp: Effort & Inspection: normal respiratory effort and able to speak in complete sentences Cardio: Jugular venous distension: no JVD Neuro: Cranial nerves: Yes CN's II-XII intact bilaterally Assessment and Plan Assessment and plan
[2021-01-22] VITALS (11 sets, daily range): BP systolic 110–140; BP diastolic 75–84; PULSE 58–94; RESP 12–32; TEMP 36–36.1; O2SAT 93–100
--- NOTE | 2021-01-22 06:56 | P.PNAN_ITS ---
Anes - Initial Pre Proc Eval Procedure: Operation Date: 01/22/21 07:30 Proposed Procedures p Microlaryngoscopy, With Biopsy - Chaitanya Denton MD Date/Time: 01/22/21 06:56 Surgeon: Chaitanya Denton MD Pre Op Diagnosis: pharynx mass Patient Data Age: 55 Gender: M Height: 6 ft 1 in Weight: 85 kg Allergies Allergy/AdvReac Type Severity Reaction Status Date / Time No Known Allergies Allergy Verified 01/22/21 06:49 Home Medications Medication Instructions Recorded Confirmed Type sildenafil 50 mg tablet 50 mg PO DAILY PRN #10 tablet 01/10/21 01/22/21 Rx Patient hx anesthesia problems: none Family hx anesthesia problems: none PMFSH Past Medical History Medical History Cardiomyopathy Complete heart block Diabetes mellitus Elevated LFTs Hypertension Iron overload Liver problem Evaluated in January 2018 at [facility] for lymphadenopathy, weight loss and liver problems. He apparently had fever, anemia and thrombocytopenia as well as an abnormal chest CT. Evaluation was negative for lymphoma (lymph node biopsy, bone marrow biopsy) or other cancers. Liver biopsy showed hepatitis of uncertain etiology with moderate periportal and lobular inflammation and periportal fibrosis with mild steatosis. There were some labs that were still pending on discharge and he is instructed to follow up, though did not. Family History Family History Father Heart disease Heart attack Natural with unknown cause in his 80s of natural causes in a long term Hypertension Mother Natural with unknown cause in her sleep at the age of 77, no history of heart disease Hypertension Social History Social History Smoking packs per day: 0.5 Smoking cigarettes per day: 10.0 Years smoked: 45 Smoking pack-years: 22.50 Smoking status: Current every day smoker Tobacco type: cigarettes Second hand tobacco smoke exposure: No Alcohol intake: current Drinks per week: 3 Living arrangements: with family Gender identity (if verbalized by the patient): Male Spiritual care concerns: No Anes - Eval Final PreProcedure Day of Procedure 01/22/21 06:56 Patient weight: normal Heart: regular rate and rhythm Lungs: clear to auscultation Airway: Mallampati scale class II and other (edentulous) Neurological: alert and oriented Last oral intake: >/= 8 hours ASA classification: II Emergent: no Anesthetic plan: proceed Anesthesia type and monitoring: general ETT and standard monitoring Informed Consent: The patient's anesthetic plan and its attendant risks and benefits were discussed with the patient/family/POA. Questions were solicited and answers provided to the satisfaction of the patient/family/POA.
[2021-01-22] MEDS: LACTATED RINGERS 1,000 ML 30 ML IV CONT ×2 (07:01→09:38)
[2021-01-22 07:14] LABS: Glucose Point of Care 139 (65-105)
--- NOTE | 2021-01-22 07:14 | WPDHPUPDATE1 ---
History and Physical Update Update Date/Time: 01/22/21 07:14 History and Physical has been reviewed, including an updated exam of the patient. There are NO changes in the patient's condition. Risks, benefits, and alternatives have been discussed and questions answered. Patient agrees to proceed with procedure.
[2021-01-22] MEDS: OXYMETAZOLINE HCL 0.05% NAS 15 ML BTL (*BKC) 1 SPRAY NASAL (07:29)
[2021-01-22 08:24] LABS: Glucose Point of Care 154 (65-105)
--- NOTE | 2021-01-22 08:27 | PM.PROC ---
Procedure Note - Detailed Date of procedure: 01/22/21 Pre-op diagnosis: pharynx mass Post-op diagnosis: same Procedure performed: Microdirect laryngoscopy Pharyngeal excisional biopsy Description of procedure: The patient was correctly identified and consent was verified in the preoperative holding area. The patient was then brought to the operating room and a time-out was performed. General anesthesia was induced and an endotracheal tube was secured the patient's airway and taped to the midline. Patient was then prepped and draped for the aforementioned procedure and the bed rotated 90?. The jessa microscope was brought into the field. A Dedo laryngoscope was put into the oral cavity following placement of a moist Ray-Kristyn over the maxillary dentition excuse me maxillary gingiva as the patient was edentulous. The right pharyngeal mass was then brought into view. It was smooth and lobulated approximately 1 x 2 cm. This was excised using a combination of laryngoscopic scissors as well as cupped forceps. Hemostasis was achieved using intermittent application of Afrin-soaked pledgets. Following the excisional biopsy hemostasis was noted to be excellent. This was sent for pathologic analysis. The Dedo laryngoscope was removed as well as Ray-Kristyn. Care the patient was turned over to Anesthesiology. All Ray tecs and pledgets were accounted for. I performed all dictated portions of the procedure. Anesthesia: GETA Surgeon: Chaitanya Denton MD Estimated blood loss (mL): 5 Drains: No Packing: No Pathology: yes Complications: No immediate complications Condition: stable Disposition: PACU
[2021-01-22] MEDS: oxyCODONE HCL (*CRX) 5 MG TAB IR PO (09:14)
[2021-01-22] MEDS: fentaNYL CITRATE INJ (*CRX) 100 MCG/2 ML VIAL 25 MCG IV PUSH ×3 (09:40→09:56)
== END 2021-01-22 11:01 | disposition home or self-care (01) ==
PROVIDERS: PCP Internal Medicine; Visit Provider Otolaryngology
PROC: 0CJS8ZZ Inspection of Larynx, Via Natural or Artificial Opening Endoscopic (ICD-10-PCS; CPT 31536; principal; 2021-01-22 07:30)
DX: J35.01 Chronic tonsillitis (principal); I42.9 Cardiomyopathy, unspecified; I44.2 Atrioventricular block, complete; E11.9 Type 2 diabetes mellitus without complications; I10 Essential (primary) hypertension; K76.9 Liver disease, unspecified; F17.210 Nicotine dependence, cigarettes, uncomplicated
CPT/HCPCS: 31536; 82948; 88305; A9270; C9803; J0330; J2250; J2405; J2704; J3010; J7120; U0003; U0005

== ENCOUNTER 2021-02-12 07:24 | Outpatient (CLI) | payer OTHER, SELFPAY ==
--- NOTE | 2021-02-13 10:52 | WPDHOMESLEEP ---
Sleep Study - Home Unattended Date of Study: 02/12/21 Ordering Provider: Elvi Angeles MD Interpreting Provider: Kristin Razo MD Home Sleep Study Type: Apnea Link Air Height: 1.85 m Weight: 84.822 kg Body Mass Index: 24.6 Neck Circumference (inches): 16 Trevor: 5 Reason for Sleep Study Witnessed apneas; cardiomyopathy and transient complete heart block noted during sleep lasting 4.9 seconds while admitted at [facility] Dorian Tapia is a 55 year old man with a history of witnessed apneas lasting up to 30 seconds. he constantly snores loudly enough that others complain about it. He occasionally awakens at night with heartburn, belching or coughing. He frequently awakens from sleep feeling short of breath. He frequently has trouble sleep with a cold. He rarely wakes up gasping for breath at night. He constantly has breathing problems at night observed by others. He occasionally sweats excessively at night and occasionally notices his heart pounding or beating irregularly at night. He does not fall asleep during the day, does not fall asleep involuntarily or while driving. He does not have loss of muscle tone was strong emotion. He does not have daytime difficulties due to excessive sleepiness. He does not feel paralyzed on waking or falling asleep. He rarely has vivid dreamlike scenes upon awakening or falling asleep. He does not feel afraid to go to sleep. He occasionally has nightmares. He occasionally remembers his dreams and occasionally has racing thoughts. He rarely feels sad or depressed. He frequently has anxiety. He occasionally has muscular tension and occasionally notices parts of his body jerking. He occasionally kicks at night. He occasionally has crawling and aching feelings in his legs and leg pain during the night. He does not have morning jaw pain. He does not grind his teeth during sleep. He occasionally has bothered by pain during the day. He rarely is awakened by pain at night. He occasionally wakes up feeling stiff in the morning with sore achy muscles and pain in the neck and spine. He has bowel disturbances, nightmares, insomnia and stomach problems. Normal bedtime varies due to his variable work schedule. It takes him about 20 to 30 minutes to fall asleep. He wakes during the night 3-4 times to urinate, staying awake for 5 minutes. He estimates getting 5-6 hours of sleep at night. He generally does not take naps. A short nap is not refreshing. He is usually drowsy in the morning for an hour. He feels better in the afternoon compared to the morning. Habits: Tobacco a pack per day. Caffeine 2-3 cups of coffee a day. Alcohol 2 or 3 per week. No recreational drugs. [facility] Past Medical History Medical History Cardiomyopathy Complete heart block Diabetes mellitus Elevated LFTs Hypertension Iron overload Liver problem Evaluated in January 2018 at [facility] for lymphadenopathy, weight loss and liver problems. He apparently had fever, anemia and thrombocytopenia as well as an abnormal chest CT. Evaluation was negative for lymphoma (lymph node biopsy, bone marrow biopsy) or other cancers. Liver biopsy showed hepatitis of uncertain etiology with moderate periportal and lobular inflammation and periportal fibrosis with mild steatosis. There were some labs that were still pending on discharge and he is instructed to follow up, though did not. Family History Family History Father Heart disease Heart attack Natural with unknown cause in his 80s of natural causes in a correction Hypertension Mother Natural with unknown cause in her sleep at the age of 77, no history of heart disease Hypertension Social History Social History Smoking packs per day: 0.5 Smoking
[2021-02-13 10:53] VITALS: BMI 24.6
== END 2021-02-12 07:25 | disposition home or self-care (01) ==
LOC: ANHCSM 07:25
PROVIDERS: PCP Internal Medicine; Visit Provider Internal Medicine Cardiovascular Disease
DX: G47.33 Obstructive sleep apnea (adult) (pediatric) (principal)
CPT/HCPCS: 95806

== ENCOUNTER → 2021-03-13 06:30 | Outpatient (CLI) | payer OTHER, SELFPAY ==
[2021-03-14 18:43] LABS: SARS-CoV-2 RNA PCR Negative
== END ==
PROVIDERS: PCP Internal Medicine; Visit Provider Internal Medicine
DX: R68.89 Other general symptoms and signs (principal); Z20.822 Contact with and (suspected) exposure to COVID-19
CPT/HCPCS: C9803; U0003; U0005

== ENCOUNTER 2021-04-23 13:20 | Outpatient (CLI) | payer OTHER, SELFPAY ==
[2021-04-23 13:47] LABS: Alanine Aminotransferase 17 U/L (4-50); Albumin Level 4.6 g/dL (3.5-5.1); Alkaline Phosphatase 111 U/L (38-126); Anion Gap 8 mmol/L (8-16); Aspartate Amino Transferase 23 U/L (17-59); Bilirubin,Total 0.5 mg/dL (0.2-1.3); Blood Urea Nitrogen 16 mg/dL (9-20); Calcium 9.2 mg/dL (8.4-10.2); Carbon Dioxide 30 mmol/L (22-30); Chloride 104 mmol/L (98-107); Cholesterol 240 mg/dL (0-200); Estimated Glomerular Filt Rate > 60; Glucose 144 mg/dL (75-110); HDL Direct 44 mg/dL; Potassium 4.2 mmol/L (3.4-5.0); Sodium 142 mmol/L (137-145); Triglycerides 366 mg/dL (<150)
[2021-04-23 13:49] LABS: Hemoglobin A1C 6.3 % (<5.7)
[2021-04-23 13:58] LABS: LDL Cholesterol Direct 131 mg/dL
== END 2021-04-23 13:21 | disposition home or self-care (01) ==
PROVIDERS: PCP Internal Medicine; Visit Provider Nurse Practitioner
DX: R79.89 Other specified abnormal findings of blood chemistry (principal); E11.9 Type 2 diabetes mellitus without complications
CPT/HCPCS: 36415; 80053; 80061; 83036

== ENCOUNTER 2021-07-01 11:59 | Emergency (ER) | payer OTHER, SELFPAY ==
[2021-07-01 12:21] VITALS: BP 126/88; PULSE 97; RESP 18; TEMP 35.9; O2SAT 98
--- NOTE | 2021-07-01 12:58 | PC.NURSE ---
1257 pt at intake desk stating I made an appointment with my PCP so I am going to go see him Pt ambulated out of ED with slow gait,slumped over.
== END 2021-07-01 12:57 | disposition left against medical advice (07) ==
LOC: ANHED 13:07
PROVIDERS: PCP Internal Medicine
DX: M54.5 Low back pain (principal)
CPT/HCPCS: 99199

== ENCOUNTER 2021-07-02 11:00 | Outpatient (CLI) | payer OTHER, SELFPAY ==
--- NOTE | ~2021-07-02 | XR_ITS ---
XR lumbar spine 2-3V 07/02/2021 11:32 Indication: Back pain Procedure: 3 views lumbar spine Comparison: No prior studies for comparison. Findings: Vertebral body heights are maintained. Mild disc narrowing at L4-5. No fracture, subluxatio n or dislocation. Mild wedge-shaped appearance to T11 and T12, likely developmental. Mild lower facet hypertrophy. No evidence for spondylolisthesis. Impression: 1: Mild lumbar spondylosis. Reviewed, dictated and finalized at location A. Impression: 1: Mild lumbar spondylosis.
== END 2021-07-02 11:01 | disposition home or self-care (01) ==
LOC: ANHIMG 11:04
PROVIDERS: PCP Internal Medicine; Visit Provider Internal Medicine
DX: M47.896 Other spondylosis, lumbar region (principal)
CPT/HCPCS: 72100

== ENCOUNTER 2021-07-22 10:14 | Outpatient (CLI) | payer OTHER, SELFPAY ==
--- NOTE | 2021-07-22 13:52 | WPDPFTINT ---
PFT Procedure Performed PFT Procedure Performed Plethysmography (Lung Vol) Diffusing Cap (DLCO) Flow Vol Loop Spirometry w/o Bronchodil PFT Interpretation Lung volumes were measured with the body plethysmography method. The lung volumes are unremarkable. Spirometry showed diminished expiratory flow rates and a diminished FEV1 to FVC ratio of 70%, indicative of obstructive airway disease. No post bronchodilator study was carried out. Lung diffusion capacity is mildly reduced at 67% predicted. Flow volume loop is suggestive of possible suboptimal effort. Clinical correlation advised. Impression: Mild obstructive airway disease. Mildly reduced lung diffusion capacity.
== END 2021-07-22 10:15 | disposition home or self-care (01) ==
LOC: ANHPFT 10:15
PROVIDERS: PCP Internal Medicine; Visit Provider Internal Medicine Cardiovascular Disease
DX: R06.00 Dyspnea, unspecified (principal); R94.2 Abnormal results of pulmonary function studies
CPT/HCPCS: 94375; 94726; 94729

== ENCOUNTER 2021-08-20 08:02 | Outpatient (CLI) | payer OTHER, SELFPAY ==
--- NOTE | 2021-09-10 13:51 | WPDSLEEPSTUD ---
Sleep Study Date of Study: 08/20/21 <Steffi David, DO - Last Filed: 09/10/21 14:19> Ordering Provider: Noe Ramírez DO <Steffi David, DO - Last Filed: 09/10/21 14:19> Interpreting Physician: Steffi David DO <Steffi David, DO - Last Filed: 09/10/21 14:19> Sleep Study Type: CPAP Titration <Steffi David DO - Last Filed: 09/10/21 14:19> Height: 1.85 m <Steffi David DO - Last Filed: 09/10/21 14:19> Weight: 86.636 kg <Steffi David DO - Last Filed: 09/10/21 14:19> Body Mass Index: 25.2 <Steffi David DO - Last Filed: 09/10/21 14:19> Neck Circumference (inches): 16 <Steffi David DO - Last Filed: 09/10/21 14:19> [place]: 8 <Steffi David DO - Last Filed: 09/10/21 14:19> Reason for Sleep Study The patient had a home sleep test on February 12, 2021 that showed an AHI of 42 with desaturation to 85%. He spent 7 minutes with an oxygen saturation less than 88% and 21% of his respiratory events were central apneas.The patient is not a candidate for autoPAP so a PAP Titration was ordered. <Steffi David, DO - Last Filed: 09/10/21 14:19> Sleep History Dorian Tapia is a 56 year old man with a history of witnessed apneas lasting up to 30 seconds. He constantly snores loudly enough that others complain about it. He occasionally awakens at night with heartburn, belching or coughing. He frequently awakens from sleep feeling short of breath. He frequently has trouble sleep with a cold. He rarely wakes up gasping for breath at night. He constantly has breathing problems at night observed by others. He occasionally sweats excessively at night and occasionally notices his heart pounding or beating irregularly at night. He does not fall asleep during the day, does not fall asleep involuntarily or while driving. He does not have loss of muscle tone was strong emotion. He does not have daytime difficulties due to excessive sleepiness. He does not feel paralyzed on waking or falling asleep. He rarely has vivid dreamlike scenes upon awakening or falling asleep. He does not feel afraid to go to sleep. He occasionally has nightmares. He occasionally remembers his dreams and occasionally has racing thoughts. He rarely feels sad or depressed. He frequently has anxiety. He occasionally has muscular tension and occasionally notices parts of his body jerking. He occasionally kicks at night. He occasionally has crawling and aching feelings in his legs and leg pain during the night. He does not have morning jaw pain. He does not grind his teeth during sleep. He occasionally has bothered by pain during the day. He rarely is awakened by pain at night. He occasionally wakes up feeling stiff in the morning with sore achy muscles and pain in the neck and spine. He has bowel disturbances, nightmares, insomnia and stomach problems. Normal bedtime varies due to his variable work schedule. It takes him about 20 to 30 minutes to fall asleep. He wakes during the night 3-4 times to urinate, staying awake for 5 minutes. He estimates getting 5-6 hours of sleep at night. He generally does not take naps. A short nap is not refreshing. He is usually drowsy in the morning for an hour. He feels better in the afternoon compared to the morning. Habits: Tobacco a pack per day. Caffeine 2-3 cups of coffee a day. Alcohol 2 or 3 per week. No recreational drugs. <Steffi David DO - Last Filed: 09/10/21 14:19> [facility] Past Medical History Medical History: Medical History Cardiomyopathy Complete heart block Diabetes mellitus Elevated LFTs Hypertension Iron overload Liver problem Evaluated in January [address] [facility] for lymphadenopathy, weight loss and liver problems. He apparently had fever, anemia and thrombocytopenia as well as an abnormal chest CT. Evaluati
[2021-09-10 13:57] VITALS: BMI 25.2
== END 2021-08-21 05:40 | disposition home or self-care (01) ==
LOC: ANHCSM 08:02
PROVIDERS: PCP Internal Medicine; Visit Provider Internal Medicine
DX: G47.33 Obstructive sleep apnea (adult) (pediatric) (principal)
CPT/HCPCS: 95811

== ENCOUNTER 2021-09-02 10:02 | Outpatient (CLI) | payer OTHER, SELFPAY ==
[2021-09-02 11:14] LABS: Alanine Aminotransferase 16 U/L (4-50); Albumin Level 4.3 g/dL (3.5-5.1); Alkaline Phosphatase 126 U/L (38-126); Anion Gap 5 mmol/L (8-16); Aspartate Amino Transferase 20 U/L (17-59); Bilirubin,Total 0.8 mg/dL (0.2-1.3); Blood Urea Nitrogen 12 mg/dL (9-20); Carbon Dioxide 29 mmol/L (22-30); Chloride 104 mmol/L (98-107); Cholesterol 193 mg/dL (0-200); Estimated Glomerular Filt Rate > 60; Glucose 151 mg/dL (65-110); HDL Direct 38 mg/dL; Hemoglobin A1C 6.7 % (<5.7); Potassium 3.9 mmol/L (3.4-5.0); Sodium 138 mmol/L (137-145); Triglycerides 180 mg/dL (<150)
[2021-09-02 11:30] LABS: LDL Cholesterol Direct 116 mg/dL
== END 2021-09-02 10:03 | disposition home or self-care (01) ==
PROVIDERS: PCP Internal Medicine; Referring Provider Internal Medicine Cardiovascular Disease; Visit Provider Internal Medicine
DX: R06.00 Dyspnea, unspecified (principal); E11.9 Type 2 diabetes mellitus without complications; E78.5 Hyperlipidemia, unspecified
CPT/HCPCS: 36415; 80048; 80061; 80076; 83036

== ENCOUNTER → 2021-10-01 08:11 | Outpatient (CLI) | payer OTHER, SELFPAY ==
[2021-10-02 02:05] LABS: SARS-CoV-2 RNA PCR Negative
[2021-10-02 09:46] LABS: Influenza Control Positive
== END ==
PROVIDERS: PCP Internal Medicine; Visit Provider Internal Medicine
DX: R09.89 Other specified symptoms and signs involving the circulatory and respiratory systems (principal); Z20.822 Contact with and (suspected) exposure to COVID-19
CPT/HCPCS: 87804; C9803; U0003; U0005

== ENCOUNTER → 2021-11-04 08:44 | Outpatient (CLI) | payer OTHER, SELFPAY ==
[2021-11-04 13:54] LABS: Influenza A QL RT-PCR Negative (Negative); Influenza B QL RT-PCR Negative (Negative); SARS-CoV-2 RNA PCR Negative
== END ==
PROVIDERS: PCP Internal Medicine; Visit Provider Internal Medicine
DX: R68.89 Other general symptoms and signs (principal); Z20.822 Contact with and (suspected) exposure to COVID-19
CPT/HCPCS: 87502; C9803; U0003; U0005

== ENCOUNTER 2021-11-27 21:56 | Emergency (ER) | payer SELFPAY ==
[2021-11-27 22:04] VITALS: BP 121/77; PULSE 95; RESP 18; TEMP 36.6; O2SAT 96
--- NOTE | 2021-11-28 01:51 | PC.NURSE ---
pt chooses to leave. pt encouraged to stay for exam by md. pt very unhappy with long wait time. encouraged to return if symptoms worsen.
== END 2021-11-28 02:13 | disposition left against medical advice (07) ==
LOC: ANHED 11-28 02:13
PROVIDERS: PCP Internal Medicine
DX: S39.92XA Unspecified injury of lower back, initial encounter (principal)
CPT/HCPCS: 99199

== ENCOUNTER 2021-11-29 10:39 | Outpatient (CLI) | payer SELFPAY ==
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
== END 2021-11-29 10:40 | disposition home or self-care (01) ==
LOC: ANHIMG 10:50
PROVIDERS: PCP Internal Medicine; Visit Provider Internal Medicine
DX: M54.9 Dorsalgia, unspecified (principal); M51.36 Other intervertebral disc degeneration, lumbar region; M41.84 Other forms of scoliosis, thoracic region
CPT/HCPCS: 72072; 72100

== ENCOUNTER 2021-12-27 07:33 | Outpatient (CLI) | payer OTHER, SELFPAY ==
--- NOTE | ~2021-12-27 | CT_ITS ---
EXAMINATION: CT brain wo/w con DATE: 12/27/2021 08:14 INDICATION: Headache. Left facial numbness. TECHNIQUE: Computed tomography (CT) of the head was performed with 100 mL Omnipaque-350 intravenous c ontrast. Sagittal and coronal reconstructions were performed. The mA was adjusted according to patien t size. Iterative reconstruction technique was employed. The dose-length product was 1210.67 mGy-cm. COMPARISON: head CT dated 12/12/20 FINDINGS: No acute intracranial hemorrhage, acute infarction or abnormal extra axial fluid collection. Ventricl es are normal and symmetric. No mass/mass effect. Right vertebral artery is dominant. Small amount of atherosclerotic calcific location at the bilateral carotid siphons. Cerebral arteries are otherwise unremarkable. No abnormally enhancing brain lesions. The orbits and mastoid air cells are normal. Mil d mucoperiosteal thickening in the bilateral maxillary and ethmoid sinuses. IMPRESSION: 1. No acute intracranial process or abnormally enhancing brain lesions. Reviewed, dictated and finalized at location A.
[2021-12-27 08:01] LABS: Estimated Glomerular Filt Rate > 60
== END 2021-12-27 07:34 | disposition home or self-care (01) ==
LOC: ANHIMG 07:37
PROVIDERS: PCP Internal Medicine; Visit Provider Internal Medicine
DX: R51.9 Headache, unspecified (principal); R20.0 Anesthesia of skin
CPT/HCPCS: 70470; Q9967